=== PATIENT | female | born 1940 | race Caucasian/White ===

== ENCOUNTER 2016-12-26 09:42 | Outpatient (CLI) | payer MEDICARE, OTHER ==
[2016-12-26 12:19] LABS: ALT (SGPT) 13 U/L (8-55); AST (SGOT) 17 U/L (5-34); Alkaline Phosphatase 45 U/L (40-150); Anion Gap 15 mmol/L (10-20); BUN (Urea Nitrogen) 22 mg/dL (9.8-20.1); Bilirubin, Total 0.7 mg/dL (0.2-1.2); Calc. Creatinine Clearance 0 mL/min (70-130); Carbon Dioxide 27 mmol/L (23-31); Cardiac Risk 2.6 (Less than 4.5); Chloride 107 mmol/L (98-107); Cholesterol 151 mg/dl (< 200 Desired); Estimated GFR-MDRD 55; Globulin 2.9 g/dL (2.4-3.5); Glucose 89 mg/dL (83-110); HDL Cholesterol 58 mg/dL (>60 Neg Risk); LDL Cholesterol, Calculated 79 mg/dL; Potassium 4.5 mmol/L (3.5-5.1); Protein, Total 6.9 g/dL (6.0-8.3); Sodium 144 mmol/L (136-145); Triglycerides 70 mg/dL (Less than 150)
[2016-12-26 12:35] LABS: #Basophils 0.1 thou/uL (0.0-0.2); #Eosinphils 0.2 thou/uL (0.0-0.7); #Monocytes 0.5 thou/uL (0.11-0.59); #Neutrophils 2.8 thou/uL (1.40-6.50); %Basophils 1.4 % (0.0-1.0); %Lymphocytes 36.5 % (21.0-51.0); %Monocytes 8.1 % (0.0-10.0); %Neutrophils 50.1 % (42.0-75.0); Mean Corpuscular HGB CONC 32.3 g/dL (32.0-36.0); Mean Corpuscular Hemoglobin 29.6 pg (27.0-31.0); Mean Corpuscular Volume 91.5 fl (81.0-99.0); Mean Platelet Volume 7.1 fL (7.4-10.4); Platelet Count 210 thou/uL (130-400); RBC Distribution Width 11.9 % (11.5-14.5); Red Blood Cell (RBC) Count 4.04 mill/uL (4.20-5.40); White Blood Cell (WBC) Count 5.5 thou/uL (4.8-10.8)
[2016-12-26 13:05] LABS: Calcium 9.7 mg/dL (7.8-10.44)
== END 2016-12-26 09:43 ==
LOC: HPCALD 09:42
PROVIDERS: ATTEND Family Medicine
DX: E78.5 Hyperlipidemia, unspecified (principal); D63.8 Anemia in other chronic diseases classified elsewhere; I10 Essential (primary) hypertension
CPT/HCPCS: 36415; 80053; 80061; 84443; 85025

== ENCOUNTER 2018-05-06 08:27 | Outpatient (CLI) | payer MEDICARE, OTHER ==
--- NOTE | 2018-05-06 17:38 | CT ---
CT CHEST WITH CONTRAST CT ABDOMEN AND PELVIS WITH CONTRAST 05/06/[address] of the chest, abdomen and pelvis was performed for evaluation of weight loss. Comparison wa s made with the prior study dated 04/11/16. CT OF THE THORAX: Spiral CT of the chest shows lungs which appear normal in that no acute infiltrate, effusion, or mass was seen. No bony abnormalities were seen in the thoracic region. The mediastinum showed no mass or adenopathy. Some faint coronary artery calcifications are seen in the left coronary circulation. Ther e is no sign of pericardial fluid. CT OF THE ABDOMEN AND PELVIS: CT of the abdomen and pelvis showed no abnormality of concern around the liver or spleen. The pancrea s appeared normal as did the adrenal glands. The aorta is normal in caliber. Several cysts are seen i n the right kidney as before. The left kidney has larger cysts. The largest measuring about 6 cm in s ize in the lower pole. It is somewhat larger. Today, there seems to be more calyceal dilation than be fore and prominence of the renal pelvis. I believe there is some degree of middle or intermediate [employer] principal [employer] narrowing bu t there seems to be a little more calyceal dilation today than there was in 2016. No solid masses wer e seen. The bowel shows no dilation or wall thickening. While diverticula are present in the colon, t here was no convincing sign of diverticulitis. A little bit of streaking around the rectosigmoid alfred ons seemed little different than before. No free fluid was seen in the pelvis. There is multilevel sp inal stenosis present in the lumbar spine, worst from L2 and below. IMPRESSION: 1. No findings definitely explaining weight loss. 2. Mild to moderate left hydronephrosis compared to the prior study. Renal cysts are present as before, but those on the left have increased in size slightly. 3. Multilevel spinal stenosis of the lumbar spine. 4. Diverticulosis without convincing findings of diverticulitis. Mild rectosigmoid streaking see ms no different than before. POS: HOME
== END 2018-05-06 08:28 | disposition home or self-care (01) ==
LOC: BURCT 08:27
PROVIDERS: ATTEND Family Medicine
DX: R63.4 Abnormal weight loss (principal); N28.1 Cyst of kidney, acquired; N13.30 Unspecified hydronephrosis; M48.061 Spinal stenosis, lumbar region without neurogenic claudication; K57.30 Diverticulosis of large intestine without perforation or abscess without bleeding
CPT/HCPCS: 71260; 74177

== ENCOUNTER 2018-07-20 15:19 | Outpatient (CLI) | payer MEDICARE, OTHER ==
[2018-07-20 22:16] LABS: ALT (SGPT) 12 U/L (8-55); AST (SGOT) 19 U/L (5-34); Albumin 4.3 g/dL (3.4-4.8); Alkaline Phosphatase 50 U/L (40-150); Anion Gap 15 mmol/L (10-20); BUN (Urea Nitrogen) 26 mg/dL (9.8-20.1); Bilirubin, Total 0.5 mg/dL (0.2-1.2); Calc. Creatinine Clearance 0 mL/min (70-130); Calcium 10.1 mg/dL (7.8-10.44); Carbon Dioxide 25 mmol/L (23-31); Chloride 105 mmol/L (98-107); Estimated GFR-MDRD 53; Globulin 2.9 g/dL (2.4-3.5); Glucose 87 mg/dL (83-110); Potassium 4.5 mmol/L (3.5-5.1); Protein, Total 7.2 g/dL (6.0-8.3); Sodium 140 mmol/L (136-145)
[2018-07-20 22:44] LABS: Hemoglobin 12.1 g/dL (12.0-16.0); Lymphocytes 21 % (21-51); MDiff Complete? YES; Mean Corpuscular HGB CONC 32.5 g/dL (32.0-36.0); Mean Corpuscular Hemoglobin 31.2 pg (27.0-31.0); Mean Corpuscular Volume 96.1 fL (78.0-98.0); Mean Platelet Volume 9.5 fL (7.4-10.4); Monocytes 3 % (0-10); Neutrophil 76 % (42-75); Platelet Count 214 thou/uL (130-400); Platelet Morphology Comment Appears Adequate; RBC Distribution Width 11.7 % (11.5-14.5); RBC Morphology Normal; Red Blood Cell (RBC) Count 3.87 mill/uL (4.20-5.40); White Blood Cell (WBC) Count 7.4 thou/uL (4.8-10.8)
== END 2018-07-20 15:20 | disposition home or self-care (01) ==
LOC: BUREKG 15:19
PROVIDERS: ATTEND Family Medicine
DX: Z01.818 Encounter for other preprocedural examination (principal)
CPT/HCPCS: 36415; 80053; 85025

== ENCOUNTER 2018-07-27 11:21 | Outpatient (CLI) | payer MEDICARE, OTHER ==
--- NOTE | 2018-07-27 17:43 | RAD ---
CHEST TWO VIEWS: 07/27/18 Comparison is made with a 03/15/16 study. The heart is normal in size. There is no vascular congestion, edema, or pleural effusion. The lungs a re slightly hyperexpanded but clear. minor osteophytes are seen in the T-spine. There may be a few gr anulomatous calcifications around the lung deng. IMPRESSION: Stable exam showing no acute finding. POS: HOME
== END 2018-07-27 11:22 | disposition home or self-care (01) ==
LOC: BURRAD 11:21
PROVIDERS: ATTEND Internal Medicine Medical Oncology
DX: R63.4 Abnormal weight loss (principal); D63.8 Anemia in other chronic diseases classified elsewhere
CPT/HCPCS: 71046

== ENCOUNTER 2018-12-26 16:55 | Emergency (ER) | payer MEDICARE, OTHER ==
[2018-12-26 17:30] LABS: Bilirubin Small (Negative); Blood, Urine Moderate (Negative); Clarity Cloudy (Clear); Glucose, Urine (Dipstick) Negative (Negative); Leukocyte Moderate (Negative); Nitrite Negative (Negative); Protein, Urine (Dipstick) 100 mg/dL (Neg-Trace); Urobilinogen 0.2 mg/dL (Less than 2)
[2018-12-26 17:33] LABS: Bacteria/HPF 4+ HPF (None Seen); RBC/HPF 0-3 HPF (0-3); Squamous Epithelial 0-3 HPF (0-3); WBC/HPF 21-50 HPF (0-3)
[2018-12-26] MEDS ORDERED: Sulfameth/Trimethoprim DS 800-160mg TAB ONE (17:51)
== END 2018-12-26 18:02 | disposition home or self-care (01) ==
LOC: BURERS 16:55
DX: N39.0 Urinary tract infection, site not specified (principal); E78.5 Hyperlipidemia, unspecified; Z79.899 Other long term (current) drug therapy
CPT/HCPCS: 81003; 81015; 99283

== ENCOUNTER 2019-04-05 10:40 | Outpatient (CLI) | payer MEDICARE, OTHER ==
--- NOTE | 2019-04-06 07:42 | ULT ---
BILATERAL RENAL ULTRASOUND: 04/05/2019 COMPARISON: Study from January 2019. FINDINGS: The right kidney measures 9 x 3.5 x 5.3 cm. At least two simple cysts are seen within it, measuring 1 .6 and 2 cm in diameter, respectively. There is no hydronephrosis. The left kidney measures 12.4 x 5.4 x 5.8 cm. Severe hydronephrosis is present. There are multiple cy sts throughout the kidney, the largest measuring around 4.1 cm in diameter. The kidney appears to hav e more cystic areas than before but there is not nearly as much debris in any of the cystic areas, as was seen previously. The urinary bladder was not filled completely but it did empty completely at the conclusion of the ex am. IMPRESSION: 1. Severe left hydronephrosis as before. There may be a few more or more prominent cysts than there w ere previously, but the amount of debris in any of the cystic areas is definitely less. 2. Two simple cysts in the right kidney, similar to before. POS: HOME
== END 2019-04-05 10:41 | disposition home or self-care (01) ==
LOC: BURULT 10:40
PROVIDERS: ATTEND Urology
DX: N28.89 Other specified disorders of kidney and ureter (principal); R13.10 Dysphagia, unspecified; N28.1 Cyst of kidney, acquired
CPT/HCPCS: 76770

== ENCOUNTER 2020-03-01 13:22 | Emergency (ER) | payer MEDICARE ==
[2020-03-01] MEDS ORDERED: Bacitracin 1 PK ONE (14:45)
--- NOTE | 2020-03-01 19:07 | CT ---
CT OF THE BRAIN WITHOUT CONTRAST: 03/01/[address] was done with no prior films available for comparison. Diffuse atrophy is present with mild compensatory dilatation of the ventricles as expected. There is a little more focal atrophy along the anterior part of the right temporal lobe. There may have been a n old ischemic insult here. There were no findings of acute stroke, mass, bleeding or edema. the skul l itself appears intact. There is some prominent mucosal thickening in the left side of the sphenoid sinus which is undoubtedly chronic. The mastoid air cells are clear. IMPRESSION: 1. Atrophy and some chronic ischemic changes but no acute intracranial findings. 2. Mucosal thickening, left sphenoid sinus. Preliminary report discussed with Dr. Duke at 1411 on 03/01/20. POS: HOME
--- NOTE | 2020-03-01 19:09 | RAD ---
LEFT HIP TWO VIEWS: 03/01/20 No fracture or dislocation was seen. The joint space is normal in width and the adjacent pubic ring a ppears intact. Some bony spurring is seen on the femoral head. The SI joints were visualized and appe ar normal. IMPRESSION: No acute bony finding. POS: HOME
== END 2020-03-01 14:55 | disposition home or self-care (01) ==
LOC: BURERS 13:22
DX: S00.03XA Contusion of scalp, initial encounter (principal); S70.02XA Contusion of left hip, initial encounter; E78.5 Hyperlipidemia, unspecified; W01.0XXA Fall on same level from slipping, tripping and stumbling without subsequent striking against object, initial encounter
CPT/HCPCS: 70450

== ENCOUNTER 2020-07-19 08:51 | Outpatient (CLI) | payer MEDICARE | END 2020-07-19 08:52 | disposition home or self-care (01) | LOC: BURCT 08:51 | PROVIDERS: ATTEND Family Medicine | DX: R10.11 Right upper quadrant pain (principal); R19.03 Right lower quadrant abdominal swelling, mass and lump; N13.30 Unspecified hydronephrosis; N28.1 Cyst of kidney, acquired | CPT/HCPCS: 74176 ==